=== PATIENT | male | born 1970 | race Hispanic/Latino ===

== ENCOUNTER 2024-09-04 12:35 | Observation (INO) | payer BC ==
[~2024-09-04] VITALS: Ht 177.8 cm; Wt 87.6 kg
--- NOTE | 2024-09-04 12:50 | EKG ---
[facility] Test Date: 2024-09-04 Test Time: 12:47:29 Pat Name: NOA SAHA Department: ED Room: 205 Gender: M Entry Level Installation Technician: [id number] : 1970 Requested By: THANIA SCHROEDER Order Number: [id number] Reading MD: Isiah Dalton Measurements Intervals [place] Rate: 75 P: 61 OK: 166 QRS: 66 QRSD: 75 T: 40 QT: 357 QTc: 399 Interpretive Statements Sinus rhythm No previous ECG available for comparison Electronically Signed On 09-05-2024 15:34:40 CDT by Isiah Dalton Please click the below link to view image of tracing.
[2024-09-04 13:42] LABS: IMMATURE GRANULOCYTE ABSOLUTE 0.07 K/uL (0-1); NUCLEATED RED BLOOD CELLS 0.0 % (0.0-0.19); PLATELET COUNT (AUTO) 174 K/uL (130-400); RED BLOOD CELL COUNT(AUTO) 5.34 MIL/uL (4.50-6.20); RED CELL DISTRIBUTION WIDTH 12.1 % (11.0-15.5); WHITE BLOOD COUNT (AUTO) 8.6 K/uL (4.8-10.8)
[2024-09-04 13:52] LABS: CREATININE 1.2 mg/dL (0.5-1.3); GLOMERULAR FILTR. RATE CALC 73.0 mL/min (>90); GLUCOSE,RANDOM 91.0 mg/dL (70-105); SODIUM SERUM 140.0 mmol/L (136-145); UREA NITROGEN, BLOOD 16.0 mg/dL (7-18)
[2024-09-04 13:57] LABS: INR 1.02 (0.85-1.15)
[2024-09-04] MEDS ORDERED: HYDROcodone/APAP 5/325 1 TAB TABLET PO PRN (14:30)
[2024-09-04] MEDS ORDERED: LACTULOSE 20 GM/30 ML UDCUP PO PRN (14:30)
--- NOTE | 2024-09-04 14:36 | ERN ---
General Chief Complaint: Lower Extremity Pain/Injury Stated Complaint: DVT LLE Time Seen by MD: 12:40 History of Present Illness Initial Comments 54-year-old male came in for left leg pain and swelling. Patient otherwise has no concerns. Allergies: Coded Allergies: No Known Drug Allergies (Unverified Allergy, Unknown, 09/04/24) Past Medical History Past Medical History: Hypertension, Other Medical History Other: INTRACRANIAL PRESSURE. DOUBLE VISION. Past Surgical History: None ROS Dictation CONSTITUTIONAL: No chills, no fever, no weakness, no diaphoresis, no malaise. HEAD/FACE: No signs of trauma. EENT: No eye pain, no blurred vision, no tearing, no double vision, no ear pain, no ear discharge, no nose pain, no nasal congestion, no throat pain, no throat swelling, no mouth pain. RESPIRATORY: No cough, no orthopnea, no SOB, no stridor, no wheezing. CARDIOVASCULAR: No chest pain, no edema, no palpitations, no syncope. GASTROINTESTINAL/ABDOMINAL: No abdominal pain, no constipation, no diarrhea, no nausea, no vomiting. GENITOURINARY: No abnormal discharge, no dysuria, no frequent urination, no hematuria. No complaints of pain in the genitals. MUSCULOSKELETAL: No back pain, no gout, no joint pain, no joint swelling, no muscle pain, no muscle stiffness, no neck pain. INTEGUMENTARY: No change in color, no change in hair/nails, no dryness, no lesion, no lumps, no rash. NEUROLOGICAL/PSYCH: No anxiety, not depressed, no emotional problem, no headache, no numbness, no pre-existing deficit, no history of seizures, no t remors, no weakness. HEMATOLOGIC/LYMPHATIC: Not anemic, no history of blood clots, no apparent bleeding, no bruising, glands not swollen. All Systems Negative, Except as Noted. Physical Exam Physical Exam Dictation VITAL SIGNS: Reviewed. GENERAL APPEARANCE: Alert, oriented x3, no acute distress, obese. HEAD AND FACE: Non-traumatic. EYES: PERRL, pink conjunctivas, eyelid no trauma, anterior chamber clear. EARS: Pinnas intact and no signs of trauma or erythema. Ear canals clear and no discharge. TMs no erythema. NOSE: No discharge, no bleeding. OROPHARYNX: Mouth normal, teeth no caries, tongue pink. Pharynx clear, no erythema. Tonsils no exudates, no abscesses noted. Mucous membrane moist. NECK: Supple, non-tender, no thyromegaly, no masses, no JVD, no bruits. BREAST: Deferred. CHEST: No tenderness, no crepitus, no paradoxical movement, no retractions. LUNGS: Clear, well-ventilated, symmetric, no rales, no wheezing, no rhonchi, no stridor, good breath sounds bilaterally. HEART: Regular rate, regular rhythm, no murmur, no gallops. VASCULAR: No peripheral edema. ABDOMEN: Soft, positive bowel sounds, nondistended, no guarding, nontender, no rebound, no masses no hepatomegaly, no splenomegaly, no Stringer's sign, no hernias. RECTAL: Deferred. GENITAL: Deferred. NEUROLOGICAL: Normal speech, gross motor function intact, gross sensory function intact. MUSCULOSKELETAL: Neck nontender, full range of motion, back nontender, full range of motion. EXTREMITIES: Nontender, full range of motion. SKIN: Color pink, dry, no turgor, no rash, no lacerations, no abrasions, no contusions. LYMPHATICS: Deferred. Results Laboratory and Microbiology Lab and Micro Result Laboratory Tests Test 09/04/24 13:36 White Blood Count 8.6 K/uL (4.8-10.8) Red Blood Count 5.34 MIL/uL (4.50-6.20) Hemoglobin 16.4 g/dL (14.0-18.0) Hematocrit 48.1 % (42-54) Mean Corpuscular Volume 90.1 fL (79-99) Mean Corpuscular Hemoglobin 30.7 pg (27.0-33.0) Mean Corpuscular Hemoglobin Concent 34.1 g/dL (32.0-36.0) Red Cell Distribution Width 12.1 % (11.0-15.5) Platelet Count 174 K/uL (130-400) Mean Platelet Volume 9.3 fL (7.5-10.5) Immature Granulocyte % (Auto) 0.8 % (0-1) Neutrophils (%) (Auto) 73.8 % (40.0-77.0) Lymphocytes (%) (Auto) 17.4 % (21.0-51.0) L Monocytes (%) (Auto) 5.2 % (3.0-13.0) Eosinophils (%) (Auto) 2.2 % (0.0-8.0) Basophils (%) (Auto) 0.6 % (0.0-5.0) Neutrophils # (Auto) 6.4 K/uL (1.8-7.7) Lymphocytes # (Auto) 1.5 K/uL (1.0-4.8) Monocytes # (Auto) 0.5 K/uL (0.1-1.0) Eosinophils # (Auto) 0.19 K/uL (0.00-0.70) Basophils # (Auto) 0.05 K/uL (0.00-0.20) Absolute Immature Granulocyte (auto 0.07 K/uL (0-1) Nucleated Red Blood Cells 0.0 % (0.0-0.19) Prothrombin Time 10.8 SEC (9.6-11.6) Prothromb Time International Ratio 1.02 (0.85-1.15) Activated Partial Thromboplast Time 27.7 SEC (26.3-35.5) Sodium Level 140 mmol/L (136-145) Potassium Level 4.0 mmol/L (3.5-5.1) Chloride Level 106 mmol/L (101-111) Carbon Dioxide Level 20 mmol/L (21-32) L Blood Urea Nitrogen 16 mg/dL (7-18) Creatinine 1.2 mg/dL (0.5-1.3) Glomerular Filtration Rate Calc 73 mL/min (>90) Random Glucose 91 mg/dL (70-105) Total Calcium 8.7 mg/dL (8.5-10.1) Troponin I High Sensitivity 5 ng/L (4-75) MDM MDM: Differential diagnosis: Rationale: Tests considered and ordered secondary to shared decision making include: labs, ECG and radiology Previous outside records reviewed: Old ER visits. Risk of complication and/or morbidity or mortality of patient management: None Medications-Per medication reconciliation Need for hospitalization: Patient does meet criteria for hospitalization. Need for emergency major/minor surgery: No There are no social concerns with this patient. Prescription drug management Prescriptions will include symptomatic care Patient's prior external medical records from other ER visits were reviewed by me as indicated. Prior testing and results from previous visits were reviewed. Prior tests were taken into account with medical decision making and resource utilization, independent historian/historians were used to obtain complete medical history. I independently interpreted the test that were performed, results were reviewed by me and considered findings on radiology if ordered. Medical management and examination interpretation discussions were had by me with other qualified healthcare professionals as indicated for the patient's care. ED Course Orders Procedure Category Date Status Time 12 Lead Ekg Tracing- EKG 09/04/24 Complete Technical 12:41 Cbc With Differential LAB 09/04/24 Complete 12:41 Basic Metabolic Panel LAB 09/04/24 Complete 12:41 Pt And Ptt LAB 09/04/24 Complete 12:41 Troponin I High LAB 09/04/24 Complete Sensitivity 12:41 Us Venous Doppler US 09/04/24 Taken Bilateral 12:41 Vital Signs Date Time Temp Pulse Resp B/P (MAP) Pulse Ox O2 Delivery O2 Flow Rate FiO2 09/04/24 13:49 81 18 138/93 98 Room Air* 0 21 09/04/24 12:37 97.2 83 18 141/96 100 Room Air 0 DX & DISP Disposition: Inpatient Departure Impression: Primary Impression: DVT (deep venous thrombosis) Condition: Stable Referrals: KIRSTIN GARCES (PCP) THANIA SCHROEDER MD Sep 04, 2024 14:36
--- NOTE | 2024-09-04 14:43 | HMCIMG ---
EXAM: US for Deep Venous Thrombosis, bilateral Lower Extremity. CLINICAL HISTORY: Leg Pain and Swelling TECHNIQUE: Real-time ultrasound scan of the veins of the bilateral lower extremity with color Doppler flow, spectral waveform analysis and compression. COMPARISON: None provided. FINDINGS: DEEP VEINS: Deep vein thrombosis is noted along mid and distal segments of the left superficial femoral vein, the popliteal vein, and the posterior tibial vein. Both common femoral veins, proximal right superficial femoral vein, right superficial femoral vein, right popliteal vein, right posterior tibial vein are echolucent and compressible. There is normal color Doppler flow throughout. SOFT TISSUES: No popliteal fossa cyst or other abnormalities. IMPRESSION: 1. Deep vein thrombosis involving the left superficial femoral, popliteal, and posterior tibial veins. /Vida
--- NOTE | 2024-09-04 15:59 | NUR ---
pt does not have meds with him at this time
--- NOTE | 2024-09-04 16:15 | NUR ---
DCP: HOME Pt lives with Josefina Murphy [phone]. Pt does not have insecurities with food, correction, and/or utilities. Pt does not have DME, home health, or provider services. Pt is able to complete ADLs independently. Pt works at [employer]. PCP is Dr. Washburn and uses [facility] for any RX needs. At [place] pt will go home and family can assist with transportation. Addendum: 09/04/24 at 1622 by ADALBERTO HOLLAND SS Amended: Links added.
[2024-09-04] MEDS: ENOXAPARIN SODIUM 100 MG/1 ML SQ SCH (20:15)
--- NOTE | 2024-09-04 21:26 | HP ---
[facility] HISTORY & PHYSICAL Date Patient Seen: Sep 04, 2024 Time of Visit: 21:26 Supervising Physician: Dr. Renny Bush Primary Care Physician: Dr. Memo Washburn Outpatient Specialists: [ ] Inpatient Consults: [ ] PROBLEM LIST: Left lower extremity DVT Hypertension HPI: Patient is a 54-year-old male who reported to the emergency department and was eventually admitted for left lower extremity swelling and pain secondary to DVT per venous ultrasound. Patient has already been started on therapeutic Lovenox at 1 mg/kg b.i.d.. Patient is comfortable at this time, treatment plan discussed with the patient he has crest understanding. PAST MEDICAL HX: see above PAST SURGICAL HX: noncontributory SOCIAL HISTORY: No tobacco, ETOH, or illicit drug use Coded Allergies: No Known Drug Allergies (Unverified Allergy, Unknown, 09/04/24) REVIEW OF SYSTEMS: 12 point ROS reviewed with patient. Pertinent positives mentioned above. Otherwise negative. PHYSICAL EXAM: GENERAL: alert, weak, awake oriented x 3 HEENT: EOMI, Sclera non icteric, moist mucosa NECK: Supple, no JVD, trachea midline LUNGS: Clear breath sounds bilaterally. No wheezes HEART: Regular rate and rhythm. Normal S1 and S2, without murmurs ABD: Abdomen soft, nontender. Bowel sounds present EXT: No clubbing cyanosis or edema NEURO: Alert and oriented to person, follows commands Vital Signs (last 8hr) Date Time Temp Pulse Resp B/P (MAP) Pulse Ox O2 Delivery O2 Flow Rate FiO2 09/04/24 20:42 97.2 71 18 107/65 100 Room Air* 0 21 09/04/24 17:30 97.2 79 18 122/74 97 Room Air* 0 21 09/04/24 14:34 97.2 81 18 126/81 100 Room Air* 0 21 09/04/24 13:49 81 18 138/93 98 Room Air* 0 21 LABS: Hematology Labs: Test 09/04/24 13:36 Range/Units White Blood Count 8.6 4.8-10.8 K/uL Red Blood Count 5.34 4.50-6.20 MIL/uL Hemoglobin 16.4 14.0-18.0 g/dL Hematocrit 48.1 42-54 % Mean Corpuscular Volume 90.1 79-99 fL Mean Corpuscular Hemoglobin 30.7 27.0-33.0 pg Mean Corpuscular Hemoglobin Concent 34.1 32.0-36.0 g/dL Red Cell Distribution Width 12.1 11.0-15.5 % Platelet Count 174 130-400 K/uL Mean Platelet Volume 9.3 7.5-10.5 fL Immature Granulocyte % (Auto) 0.8 0-1 % Neutrophils (%) (Auto) 73.8 40.0-77.0 % Lymphocytes (%) (Auto) 17.4 L 21.0-51.0 % Monocytes (%) (Auto) 5.2 3.0-13.0 % Eosinophils (%) (Auto) 2.2 0.0-8.0 % Basophils (%) (Auto) 0.6 0.0-5.0 % Neutrophils # (Auto) 6.4 1.8-7.7 K/uL Lymphocytes # (Auto) 1.5 1.0-4.8 K/uL Monocytes # (Auto) 0.5 0.1-1.0 K/uL Eosinophils # (Auto) 0.19 0.00-0.70 K/uL Basophils # (Auto) 0.05 0.00-0.20 K/uL Absolute Immature Granulocyte (auto 0.07 0-1 K/uL Nucleated Red Blood Cells 0.0 0.0-0.19 % Chemistry Labs: Test 09/04/24 13:36 Range/Units Sodium Level 140 136-145 mmol/L Potassium Level 4.0 3.5-5.1 mmol/L Chloride Level 106 101-111 mmol/L Carbon Dioxide Level 20 L 21-32 mmol/L Blood Urea Nitrogen 16 7-18 mg/dL Creatinine 1.2 0.5-1.3 mg/dL Glomerular Filtration Rate Calc 73 >90 mL/min Random Glucose 91 70-105 mg/dL Total Calcium 8.7 8.5-10.1 mg/dL Troponin I High Sensitivity 5 4-75 ng/L Coagulation Labs: Test 09/04/24 13:36 Range/Units Prothrombin Time 10.8 9.6-11.6 SEC Prothromb Time International Ratio 1.02 0.85-1.15 Activated Partial Thromboplast Time 27.7 26.3-35.5 SEC DIAGNOSTICS / RADIOLOGY RESULTS: [ ] PLAN NEURO: Minimize central acting medications as possible. Maintain fall precautions, adequate lighting during the day PULMONARY: Supplemental 02 as needed. Maintain aspiration precautions at all times CARDIOVASCULAR: Follow hemodynamics. Vital signs per facility protocol GI & NUTRITION: Continue with nutritional support. Continue stool softeners and laxatives as needed. KIDNEYS & ELECTROLYTES: Strict monitoring of intake, output and overall fluid balance. Avoid nephrotoxic medications to the extent possible. Medications to be dosed according to renal function. Monitor electrolytes and replace as needed ENDOCRINE: Maintain blood glucose between 100-180 at all times. Hypoglycemia protocol in place INFECTIOUS DISEASE: Trend temperature, WBC and procalcitonin level Follow cultures, deescalate antibiotics as soon as possible. Panculture if new onset fever ONCOLOGY/HEMATOLOGY/COAGULATION: Monitor for s/s of bleeding Monitor hemoglobin, coagulation studies as needed SKIN: Pressure ulcer prevention per facility protocol Specialty mattress ORTHO/REHAB: Continue PT/OT Prophylaxis: Continue GI and DVT prophylaxis Code Status: Full Resuscitation Disposition: TBD Other: Total patient care time exceeds 35 minutes excluding all procedures. GABRIEL LINCOLN Sep 04, 2024 21:26
[2024-09-05] VITALS (11 sets, daily range): BP systolic 108–133; BP diastolic 69–99; PULSE 62–86; RESP 13–88; TEMP 97.8–98.2; O2SAT 97–98
--- NOTE | 2024-09-05 01:46 | NUR ---
REPORT GIVEN TO MARYAM JAMESON ALL QUESTIONS ANSWERED AT THIS TIME. RN EXPECTING PT ARRIVAL TO THE UNIT.
[2024-09-05] MEDS ORDERED: ACET250T28 PO (02:40)
[2024-09-05] MEDS ORDERED: POTA-202 PO (02:40)
[2024-09-05] MEDS ORDERED: LISI1TAB49 PO (02:40)
[2024-09-05 05:47] LABS: IMMATURE GRANULOCYTE ABSOLUTE 0.06 K/uL (0-1); NUCLEATED RED BLOOD CELLS 0.0 % (0.0-0.19); PLATELET COUNT (AUTO) 201 K/uL (130-400); RED BLOOD CELL COUNT(AUTO) 5.05 MIL/uL (4.50-6.20); RED CELL DISTRIBUTION WIDTH 12.1 % (11.0-15.5); WHITE BLOOD COUNT (AUTO) 10.8 K/uL (4.8-10.8)
[2024-09-05 06:05] LABS: INR 1.03 (0.85-1.15)
[2024-09-05 06:14] LABS: CREATININE 1.4 mg/dL (0.5-1.3); GLOMERULAR FILTR. RATE CALC 60.0 mL/min (>90); GLUCOSE,RANDOM 95.0 mg/dL (70-105); PHOSPHORUS 2.4 mg/dL (2.5-4.9); SODIUM SERUM 140.0 mmol/L (136-145); UREA NITROGEN, BLOOD 14.0 mg/dL (7-18)
--- NOTE | 2024-09-05 11:55 | NUR ---
[facility] ICU Skin Assessment: Patient assessed by wound healing team. Patient with no wounds or skin breakdown noted. Assessment and recommendations provided to primary nurse. Education provided. Addendum: 09/05/24 at 1425 by FRANNY AJ RN RN/ Amended: Links added.
--- NOTE | 2024-09-05 12:26 | PN ---
[facility] PROGRESS NOTE Date Patient Seen: Sep 05, 2024 Time of Visit: 12:25 Supervising Physician: Dr. Bush Primary Care Physician: Dr. Memo Washburn Outpatient Specialists: [ ] Inpatient Consults: [ ] PROBLEM LIST: Left lower extremity DVT Hypertension INTERVAL HISTORY: 09/05/2024: At the time of my evaluation, the patient was lying in bed. Staff nurse reports no acute events overnight. Patient remains on room air. Vital signs today are unremarkable. Laboratory data today is unremarkable except for a slight increase of creatinine to 1.4. Venous Doppler identified a left superficial femoral popliteal and posterior tibial vein DVT. The patient was started on anticoagulation with Lovenox weight based. No other complaint. REVIEW OF SYSTEMS: 12 point ROS reviewed with patient. Pertinent positives mentioned above. Otherwise negative. PHYSICAL EXAM: GENERAL: alert, weak, awake oriented x 3 HEENT: EOMI, Sclera non icteric, moist mucosa NECK: Supple, no JVD, trachea midline LUNGS: Clear breath sounds bilaterally. No wheezes HEART: Regular rate and rhythm. Normal S1 and S2, without murmurs ABD: Abdomen soft, nontender. Bowel sounds present EXT: No clubbing cyanosis or edema NEURO: Alert and oriented to person, follows commands Vital Signs (last 8hr) Date Time Temp Pulse Resp B/P (MAP) Pulse Ox O2 Delivery O2 Flow Rate FiO2 09/05/24 11:16 98.1 75 16 131/82 100 Room Air 09/05/24 10:09 98 Room Air* 0 21 09/05/24 07:42 98.2 62 18 119/81 99 Room Air 09/05/24 05:02 97 Room Air* 0 21 LABS: Hematology Labs: Test 09/05/24 05:34 Range/Units White Blood Count 10.8 # 4.8-10.8 K/uL Red Blood Count 5.05 4.50-6.20 MIL/uL Hemoglobin 15.9 14.0-18.0 g/dL Hematocrit 44.9 42-54 % Mean Corpuscular Volume 88.9 79-99 fL Mean Corpuscular Hemoglobin 31.5 27.0-33.0 pg Mean Corpuscular Hemoglobin Concent 35.4 32.0-36.0 g/dL Red Cell Distribution Width 12.1 11.0-15.5 % Platelet Count 201 130-400 K/uL Mean Platelet Volume 9.6 7.5-10.5 fL Immature Granulocyte % (Auto) 0.6 0-1 % Neutrophils (%) (Auto) 60.1 40.0-77.0 % Lymphocytes (%) (Auto) 27.1 21.0-51.0 % Monocytes (%) (Auto) 8.3 3.0-13.0 % Eosinophils (%) (Auto) 3.2 0.0-8.0 % Basophils (%) (Auto) 0.7 0.0-5.0 % Neutrophils # (Auto) 6.5 1.8-7.7 K/uL Lymphocytes # (Auto) 2.9 1.0-4.8 K/uL Monocytes # (Auto) 0.9 0.1-1.0 K/uL Eosinophils # (Auto) 0.35 0.00-0.70 K/uL Basophils # (Auto) 0.08 0.00-0.20 K/uL Absolute Immature Granulocyte (auto 0.06 0-1 K/uL Nucleated Red Blood Cells 0.0 0.0-0.19 % Chemistry Labs: Test 09/05/24 05:34 09/04/24 13:36 Range/Units Sodium Level 140 136-145 mmol/L Potassium Level 4.3 3.5-5.1 mmol/L Chloride Level 110 101-111 mmol/L Carbon Dioxide Level 20 L 21-32 mmol/L Blood Urea Nitrogen 14 7-18 mg/dL Creatinine 1.4 H 0.5-1.3 mg/dL Glomerular Filtration Rate Calc 60 >90 mL/min Random Glucose 95 70-105 mg/dL Total Calcium 8.4 L 8.5-10.1 mg/dL Phosphorus Level 2.4 L 2.5-4.9 mg/dL Magnesium Level 2.00 1.80-2.40 mg/dL Troponin I High Sensitivity 5 4-75 ng/L Coagulation Labs: Test 09/05/24 05:34 09/04/24 13:36 Range/Units Prothrombin Time 10.9 9.6-11.6 SEC Prothromb Time International Ratio 1.03 0.85-1.15 Activated Partial Thromboplast Time 27.7 26.3-35.5 SEC DIAGNOSTICS / RADIOLOGY RESULTS: [ ] PLAN 09/05/2024: Currently, trigger for clot development is unknown. We will continue weight based Lovenox, we will transitioned to Eliquis for discharge. We will request a 2D echo. We will monitor for any bleed and managed as necessary. NEURO: Minimize central acting medications as possible. Maintain fall precautions, adequate lighting during the day PULMONARY: Supplemental 02 as needed. Maintain aspiration precautions at all times CARDIOVASCULAR: Follow hemodynamics. Vital signs per facility protocol GI & NUTRITION: Continue with nutritional support. Continue stool softeners and laxatives as needed. KIDNEYS & ELECTROLYTES: Strict monitoring of intake, output and overall fluid balance. Avoid nephrotoxic medications to the extent possible. Medications to be dosed according to renal function. Monitor electrolytes and replace as needed ENDOCRINE: Maintain blood glucose between 100-180 at all times. Hypoglycemia protocol in place INFECTIOUS DISEASE: Trend temperature, WBC and procalcitonin level Follow cultures, deescalate antibiotics as soon as possible. Panculture if new onset fever ONCOLOGY/HEMATOLOGY/COAGULATION: Monitor for s/s of bleeding Monitor hemoglobin, coagulation studies as needed SKIN: Pressure ulcer prevention per facility protocol Specialty mattress ORTHO/REHAB: Continue PT/OT Prophylaxis: Continue GI and DVT prophylaxis Code Status: Full Resuscitation Disposition: TBD Other: Patient was seen and case discussed with blane OLIVERA. Plan of care was discussed and agreed upon. AMBROSIO ARIAS NP Sep 05, 2024 12:26
[2024-09-06] VITALS: BP 124/69; PULSE 67; RESP 18; TEMP 98.2
[2024-09-06 04:00] VITALS: BP 113/62; PULSE 60; RESP 18; TEMP 98.3
[2024-09-06 04:37] LABS: NUCLEATED RED BLOOD CELLS 0.0 % (0.0-0.19); PLATELET COUNT (AUTO) 206.0 K/uL (130-400); RED BLOOD CELL COUNT(AUTO) 5.25 MIL/uL (4.50-6.20); RED CELL DISTRIBUTION WIDTH 11.9 % (11.0-15.5); WHITE BLOOD COUNT (AUTO) 10.0 K/uL (4.8-10.8)
[2024-09-06 04:57] LABS: CREATININE 1.2 mg/dL (0.5-1.3); GLOMERULAR FILTR. RATE CALC 73.0 mL/min (>90); GLUCOSE,RANDOM 100.0 mg/dL (70-105); SODIUM SERUM 141.0 mmol/L (136-145); UREA NITROGEN, BLOOD 16.0 mg/dL (7-18)
[2024-09-06 07:52] VITALS: BP 123/82; PULSE 70; RESP 16; TEMP 98.2
[2024-09-06 08:00] VITALS: O2SAT 99
[2024-09-06] MEDS ORDERED: PoTASSium chl 10% ELIXIR 20MEQ 20 MEQ/15 ML UDCUP PO PRN (11:00)
[2024-09-06 12:00] VITALS: BP 119/72; PULSE 75; RESP 16; TEMP 98
[2024-09-06] MEDS: PoTASSium chloRIDE 20MEQ ER 20 MEQ ERTAB PO PRN (12:50)
--- NOTE | 2024-09-06 14:02 | DS ---
[facility] DISCHARGE SUMMARY Date Patient Seen: Sep 06, 2024 Time of Visit: 14:02 Supervising Physician: Dr. Gallagher Primary Care Physician: Dr. Memo Washburn Outpatient Specialists: [ ] Inpatient Consults: [ ] HOSPITAL COURSE: HPI (per admitting provider) Patient is a 54-year-old male who reported to the emergency department and was eventually admitted for left lower extremity pain secondary to DVT per venous ultrasound. Patient has already been started on therapeutic Lovenox at 1 mg/kg b.i.d.. Patient is comfortable at this time, treatment plan discussed with the patient he has crest understanding. The patient was treated for the following problems: Patient was admitted and treated for left lower extremity DVT following signs of swelling and discomfort. Patient was treated with weight based Lovenox during his admission and was discharged with therapeutic Eliquis regimen of 10 mg b.i.d. for seven days and to continue with 5 mg b.i.d. for a minimum of three months to be determined by his PCP. Patient also advised to follow up with Hematology for further workup for hypercoagulable state as well as with [facility] for outpatient sleep study and evaluation of suspected NELL. Risks and benefits of anticoagulation therapy were discussed with the patient as well as indicators for returned to the emergency room, patient expressed understanding. ACTIVE PROBLEM LIST FOR THE HOSPITALIZATION: Left lower extremity DVT, treated Suspected NELL CHRONIC PROBLEMS: continue previous management per PCP unless otherwise indicated Hypertension GAS PUMPER FINDINGS/RECOMMENDATIONS: [ ] PROCEDURES: as mentioned above DISCHARGE MEDICATIONS: Pt hemodynamically stable and afebrile at time of discharge. PCP notified of patients admission, hospital course and discharge. PHYSICAL EXAM: GENERAL: alert, weak, awake oriented x 3 HEENT: EOMI, Sclera non icteric, moist mucosa NECK: Supple, no JVD, trachea midline LUNGS: Clear breath sounds bilaterally. No wheezes HEART: Regular rate and rhythm. Normal S1 and S2, without murmurs ABD: Abdomen soft, nontender. Bowel sounds present EXT: No clubbing cyanosis or edema NEURO: Alert and oriented to person, follows commands FOLLOW-UP: Follow-up with PCP in 2-3 days RECOMMENDATIONS: Complete course of therapeutic Eliquis for DVT This case was seen and discussed with my supervising physician. More than 30 minutes spent on discharge process, including evaluation of the patient, discussion with nursing staff, medication reconciliation and follow-up appointments GABRIEL LINCOLN Sep 06, 2024 14:02
[2024-09-06] MEDS ORDERED: APIX5TAB PO (15:19)
[2024-09-06 15:49] VITALS: BP 122/79; PULSE 84; RESP 16; TEMP 99.1
--- NOTE | 2024-09-06 16:35 | HMCSR ---
APPROVED REPORT EXAM: Two-dimensional and M-mode echocardiogram with Doppler and color Doppler. INDICATION ICD: Left leg DVT, suspected Pulmonary embolism 2D Dimensions RVDd4.0 cmLVEF(%)53.3 (>50%)LVED Vol(simp.)107.0 mL IVSd0.7 (0.7-1.1cm)FS(%)27 %LVES Vol(simp.)52.0 mL LVDd4.7 (3.8-5.6cm)LA (2D)3.9 (1.6-4.0cm)LVEF(%, simp.)51 % PWd0.9 (0.7-1.1cm)Ao Root(2D)2.7 (2.0-3.7cm)LA ESV INDEX (BP)24.89 mL/m2 LVDs3.4 (2.5-4.0cm)LVOT diam2.2 (1.8-2.4cm) IVC diam1.4 cm Deformation Strain Apical 4-18.9 % Apical 2-18.1 % Apical 3-16.9 % Global Strain-18.0 % M-Mode Dimensions EPSS1.1 cm LA (MM)4.3 (1.6-4.0cm) Ao Root(MM)2.7 (2.0-3.7cm) Aortic Valve AoV Vmax1.2 m/Young Peak GR5.3 mmHgLVOT Vmax1.1 m/s AoV VTI0.2 mAo Mean GR2.4 mmHgLVOT VTI0.23 m JAMIE (VMAX)3.69 cm2AVA (VTI) 4.1 cm2 Mitral Valve MV E Vmax71.5 cm/sDECEL Chim867 ms MV A Vmax67.9 cm/sP 1/2 T62 ms E/A ratio1.1MVA (PHT)3.6 cm2 TDI E/E' Medial6.5E/E' Lateral4.5 Medial E' Peak V11.03 cm/sLateral E' Peak V15.75 cm/s Pulmonary Valve PV Vmax0.7 m/sPV VTI0.15 mPV Mean GR1.2 mmHg PV Peak GR1.9 mmHg Tricuspid Valve RAP (EST) 8 mmHgRVSP8.0 mmHg Left Ventricle The left ventricle is normal size. There is normal LV segmental wall motion. There is normal left madelyn tricular wall thickness. LVEF is 50-55%. The left ventricular diastolic function is normal. Right Ventricle The right ventricle is normal size. The right ventricular systolic function is normal. Atria The left atrium size is normal. The right atrium size is normal. Aortic Valve The aortic valve is normal in structure. No aortic regurgitation is present. There is no aortic valvu lar stenosis. Mitral Valve The mitral valve is normal in structure. There is trace mitral valve regurgitation noted. There is no mitral valve stenosis. Tricuspid Valve The tricuspid valve is normal in structure. There is trace tricuspid valve regurgitation noted. Pulmonic Valve The pulmonary valve is normal in structure. There is no pulmonic valvular regurgitation. Great Vessels The aortic root is normal in size. IVC is not well visualized. Pericardium There is no pericardial effusion. Other Information Quality : Adequate Conclusion The left ventricle is normal size. LVEF is 50-55% with normal LV segmental wall motion. The left ventricular diastolic function is normal. The right ventricular systolic function is normal. Both atria are normal in size. No hemodynamically significant valvular abnormalities. There is no pericardial effusion.
--- NOTE | 2024-09-06 17:15 | NUR ---
DISCHARGE INSTRUCTIONS WERE GIVEN TO THIS PATIENT AND SPOUSE AT BEDSIDE. PIV TO LEFT AC WAS REMOVED WITH CATHETER INTACT. ALL BELONGINGS WERE TAKEN WITH SPOUSE. TELE PACK WAS REMOVED AND RETURNED TO TELE ROOM. EDUCATION WAS PROVIDED ON NEW MEDICATION AND THEY VOICED UNDERSTANDING. PATIENT WAS TAKEN DOWN TO PRIVATE VEHICLE VIA WHEEL CHAIR.
== END 2024-09-06 17:15 | disposition home or self-care (01) ==
LOC: EDH 12:40 → INTOOBSV 14:10 → EDHIP 14:10 → 2CH 09-05 02:08 → 2AH 09-05 15:29
PROVIDERS: ADMIT Internal Medicine Critical Care Medicine; ATTEND Internal Medicine Critical Care Medicine
DX: I82.432 Acute embolism and thrombosis of left popliteal vein (principal); R60.0 Localized edema; I10 Essential (primary) hypertension; Z79.899 Other long term (current) drug therapy
CPT/HCPCS: 99284; 93970; 96372 ×3; 84484; 80048 ×3; 85025 ×2; 85610 ×2; 85730; 36415 ×3; 93005; 83735; 84100; 93306; 85027; 93356; 76376; J1650 ×4; G0378; 99285